=== PATIENT | male | born 1990 | race American Indian/Alaskan Native ===

== ENCOUNTER 2016-11-23 16:20 | Emergency (ER) | payer SELFPAY ==
--- NOTE | 2016-11-23 19:03 | Emergency Department Report ---
Chief Complaint: Headache Stated Complaint: BAD HEADACHES/FEVER Time Seen by Provider: 11/23/16 18:50 - HPI History of Present Illness: Patient here reports that he has a headache and that he is HIV positive. He saw his antiviral medication from September -October 2016. He started back beginning on November. He said he has a severe headache 7 out of 10. He said he is unable to get to his primary care doctor within the next 2 weeks. - ROS Review of Systems: All Systems are negative unless stated in HPI above. - Exam Vital Signs: Vital Signs 11/23/16 18:04 Temperature 98.4 F Pulse Rate 89 Respiratory 18 Rate Blood Pressure 118/82 O2 Sat by Pulse 100 Oximetry Physical Exam: General: Is a 25-year-old male that appears nontoxic in appearance.. MINI_Neurologic: GCS at 15, alert and oriented 3, speech is normal and fluid. NO Facial drooping. Gait is normal MSE screening note: Focused history and physical exam performed. Due to findings the following was ordered: ED Medical Decision Making - Medical Decision Making Medical decision making: Patient seen by provider in triage area. Appropriate protocol activated and patient to main ED to be seen by physician. ED Disposition for MSE Condition: Stable Referrals: PRIMARY CARE, [Primary Care Provider] - 3-5 Days
[2016-11-23] MEDS ORDERED: NACL 0.9% 1000 ML 1,000 ML IV ONE (19:06)
[2016-11-23] MEDS ORDERED: ZOFRAN IV ONE (19:06)
[2016-11-23] MEDS ORDERED: TORADOL IV ONE (19:06)
[2016-11-23 19:39] LABS: Basophils % (Auto) 0.7 % (0.0-1.8); Eosinophils % (Auto) 0.8 % (0.0-4.3); Hematocrit 37.4 % (35.5-45.6); Hemoglobin 11.9 gm/dl (11.8-15.2); Mean Corpuscular HGB Conc 32 % (32-34); Mean Corpuscular Volume 81 fl (84-94); Platelet Count 202 K/mm3 (140-440); Red Blood Count 4.63 M/mm3 (3.65-5.03); Red Cell Distribution Width 16.5 % (13.2-15.2); White Blood Count 4.1 K/mm3 (4.5-11.0)
[2016-11-23 19:41] LABS: Mean Corpuscular Hemoglobin 26 pg (28-32)
[2016-11-23 19:55] LABS: Alanine Aminotransferase 10 units/L (7-56); Albumin 3.8 g/dL (3.9-5); Albumin/Globulin Ratio 1.3 %; Alkaline Phosphatase 54 units/L (35-129); Anion Gap 17 mmol/L; Bilirubin,Total 0.4 mg/dL (0.1-1.2); Blood Urea Nitrogen 12 mg/dL (9-20); Calcium 8.7 mg/dL (8.4-10.2); Carbon Dioxide 28 mmol/L (22-30); Chloride 102.7 mmol/L (98-107); Glucose 99 mg/dL (75-100); Potassium 4.2 mmol/L (3.6-5.0); Sodium 143 mmol/L (137-145); Total Protein 6.8 g/dL (6.3-8.2)
[2016-11-23 20:12] LABS: Bilirubin,Direct < 0.2 mg/dL (0-0.2); Bilirubin,Indirect 0.2 mg/dL
[2016-11-23 20:16] LABS: Bilirubin,Urine NEG (Negative); Blood,Urine NEG (Negative); Ketones,Urine TR mg/dL (Negative); Leukocyte Esterase,Urine NEG (Negative); Mucus,Urine 2+ /HPF; Nitrite,Urine NEG (Negative)
--- NOTE | 2016-11-23 21:02 | Emergency Department Report ---
ED Headache HPI - General Chief Complaint: Headache Stated Complaint: BAD HEADACHES/FEVER Time Seen by Provider: 11/23/16 19:03 Source: patient Exam Limitations: no limitations - History of Present Illness Quality: mild Head Injury Location: frontal, temporal Recent Head Trauma: no recent headache/trauma, frequent headaches, chronic headaches (he stopped his hiv meds and when he started them again began having headaches. , happened the last time again.) Associated Symptoms: denies: confusion, fatigue, facial pain, fever/chills, flushing, loss of consciousness, nausea/vomiting, nasal congestion, nasal drainage, numbness in legs/feet, rash, seizures, sinus infection, stiff neck, vision changes, weakness Allergies/Adverse Reactions: Allergies acetaminophen [From Tylenol Sinus Congestion Pain] Allergy (Verified 11/23/16 18 :02) Hives aspirin [From Keri-Sunburst Plus Sinus] Allergy (Verified 11/23/16 18:02) Hives chlorpheniramine [From Tylenol Sinus Congestion Pain] Allergy (Verified 18:02) Hives guaifenesin [From Mucinex] Allergy (Verified 11/23/16 18:02) Hives phenylephrine HCl [From Tylenol Sinus Congestion Pain] Allergy (Verified 18:02) Hives phenylpropanolamine bitartrate [From Keri-Sunburst Plus Sinus] Allergy (Verified 11/23/16 18:02) Hives Home Medications: Ambulatory Orders HYDROcodone/APAP 5-325 [[place] 5/325] 1 each PO Q6HR PRN #12 tablet 11/23/16 Ibuprofen [Motrin] 800 mg PO Q8HR #21 tablet 11/23/16 ED Review of Systems ROS: Stated complaint: BAD HEADACHES/FEVER Other details as noted in HPI Constitutional: denies: chills, fever Eyes: denies: eye pain, eye discharge, vision change ENT: denies: ear pain, throat pain Respiratory: denies: cough, shortness of breath, wheezing Cardiovascular: denies: chest pain, palpitations Endocrine: no symptoms reported Gastrointestinal: denies: abdominal pain, nausea, diarrhea Genitourinary: denies: urgency, dysuria Musculoskeletal: denies: back pain, joint swelling, arthralgia Skin: denies: rash, lesions Neurological: denies: headache, weakness, paresthesias Psychiatric: denies: anxiety, depression Hematological/Lymphatic: denies: easy bleeding, easy bruising ED Past Medical Hx - Past Medical History Previous Medical History?: Yes Hx HIV: Yes Additional medical history: HIV . On medications. - Social History Smoking Status: Never Smoker Substance Use Type: None - Medications Home Medications: Home Medications Medication Instructions Recorded Confirmed Last Taken Type HYDROcodone/APAP 5-325 [[place] 1 each PO Q6HR PRN #12 tablet 11/23/16 Unknown Rx 5/325] Ibuprofen [Motrin] 800 mg PO Q8HR #21 tablet 11/23/16 Unknown Rx ED Physical Exam - General Limitations: No Limitations General appearance: alert, in no apparent distress - Head Head exam: Present: atraumatic, normocephalic - Eye Eye exam: Present: normal appearance - ENT ENT exam: Present: mucous membranes moist - Neck Neck exam: Present: normal inspection, full ROM. Absent: tenderness, meningismus, lymphadenopathy, thyromegaly - Respiratory Respiratory exam: Present: normal lung sounds bilaterally. Absent: respiratory distress - Cardiovascular Cardiovascular Exam: Present: regular rate, normal rhythm. Absent: systolic murmur, diastolic murmur, rubs, gallop - GI/Abdominal GI/Abdominal exam: Present: soft, normal bowel sounds - Rectal Rectal exam: Present: deferred - Extremities Exam Extremities exam: Present: normal inspection - Back Exam Back exam: Present: normal inspection - Neurological Exam Neurological exam: Present: alert, oriented X3 - Psychiatric Psychiatric exam: Present: normal affect, normal mood - Skin Skin exam: Present: warm, dry, intact, normal color. Absent: rash ED Course Vital Signs 11/23/16 18:04 Temperature 98.4 F Pulse Rate 89 Respiratory 18 Rate Blood Pressure 118/82 O2 Sat by Pulse 100 Oximetry ED Medical Decision Making - Lab Data Result diagrams: 11/23/16 19:25 11/23/16 19:25 - Medical Decision Making Patient with similar symptoms of diffuse headache when he started hiv meds , he was incarcerated and couldn't get his meds, he wants to make sure he has a work note and amount of motrin to take, refuses head ct at this time , refuses LP at this time, will dc and follow up. Critical care attestation.: If time is entered above; I have spent that time in minutes in the direct care of this critically ill patient, excluding procedure time. ED Disposition Clinical Impression: Headache Disposition: DISCHARGED TO HOME OR SELFCARE Is pt being admited?: No Does the pt Need Aspirin: No Condition: Good Instructions: Acute Headache (ED) Prescriptions: HYDROcodone/APAP 5-325 [[place] 5/325] 1 each PO Q6HR PRN #12 tablet PRN Reason: Pain Ibuprofen [Motrin] 800 mg PO Q8HR #21 tablet Referrals: PRIMARY CARE, [Primary Care Provider] - 3-5 Days Forms: Work/School Release Form(ED) Time of Disposition: 21:03
[2016-11-23 21:16] VITALS: BP 115/67
== END 2016-11-23 21:15 | disposition home or self-care (01) ==
LOC: ED 16:20
DX: R51 Headache (principal); Z88.8 Allergy status to other drugs, medicaments and biological substances; Z88.6 Allergy status to analgesic agent
CPT/HCPCS: 36415; 80048; 80074; 81001; 85025; 87086; 99283; J1885; J2405; J7030